=== PATIENT | female | born 1975 | race Caucasian/White ===

== ENCOUNTER 2018-09-04 17:43 | Emergency (ER) | payer MEDICAID, SELFPAY ==
[2018-09-04 18:00] VITALS: BP 99/53; PULSE 72; RESP 16; TEMP 36.5; O2SAT 98
--- NOTE | 2018-09-04 19:03 | W.ED.GENAD ---
Discharge Plan Disposition Patient Disposition: HOME Condition: Stable Discharge Details Chief Complaint: Orthopedic Clinical Impression: Strain of cervical portion of right trapezius muscle Primary Care Provider: Jose Miguel Romero ED Provider: Walter Jeong Home Meds and New Rx's Prescriptions: New cyclobenzaprine 10 mg tablet 10 mg PO TID PRN (Reason: muscle spasm) Qty: 20 RF: 0 ibuprofen [IBU] 600 mg tablet 600 mg PO QID PRN (Reason: pain) Qty: 20 RF: 0 Continue amitriptyline 10 mg Tablet 10 mg PO DAILY RF: 0 ranitidine HCl 150 mg Tablet 150 mg PO BID RF: 0 propranolol 10 mg Tablet 10 mg PO BID RF: 0 ferrous sulfate 27 mg iron Tablet 27 mg PO DAILY RF: 0 topiramate 25 mg Tablet 25 mg PO BID RF: 0 Discharge Instructions Instructions: Cervical Strain (ED), Acute Neck Pain (ED) Additional Instructions: Return immediately to the emergency department for any new or worsening symptoms otherwise please rest and minimize use of your right upper extremity for the next 3 days and then slowly advance activity as tolerated by discomfort. If not improving over the next 1-2 weeks please follow-up with your primary care provider for reassessment. Referrals: Jose Miguel Romero [Primary Care Provider] - (As needed for reassessment or if not improving over the next 1-2 weeks) Discharge Data Discharge Date/Time-TO BE ENTERED AT DEPARTURE: 09/04/18 19:18 Medical Decision Making Patient presenting to the emergency department for chief complaint of right arm pain. Patient states that she has been having mild right arm pain for the last week or so does not remember any injury or known trauma but then her pain improved over the weekend and came back severe over the last 24 hours. Patient does state that she has been taking care of her grandchild and has noticed that holding her grandchild has exacerbated the symptoms. Physical exam does show tenderness to the right cervical portion of the trapezius muscle. Physical exam is otherwise unremarkable and patient has full neuro motor and sensory function to the right upper extremity and denies any other focal motor deficits weaknesses or discomfort. Patient diagnosed with cervical strain and placed upon ibuprofen 600 mg every 6 hours and Flexeril. Patient encouraged to follow-up with primary care provider for reassessment if not improving over the next 1-2 weeks. Did discuss with patient radiological imaging but I do not feel that this needs to be performed at this time given no injury or trauma and seems to be mostly exacerbated by lifting and use of right upper extremity. After discussion of diagnosis and plan of care patient has no further needs, questions, or concerns and states clear understanding to return to the emergency department for any worsening symptoms. HPI General Mode of arrival: ambulatory. Date/Time Provider Initiated Documentation: 09/04/18 18:16. Limitations to Documentation: no limitations. Information obtained by: patient and RN notes reviewed. History of Present Illness 42 year old F presents to the emergency department with the chief complaint of Right arm pain, described as mild, with intensity rated at 4. Quality is described as aching, and is localized to the right and upper extremity. Patient distal. Patient started experiencing this day(s) (1) and it has been constant. Rest improves symptom(s), Movement worsens symptoms . Patient notes no other symptoms.. Patient did receive the following treatments prior to arrival, none Related Data Home Medications Medication Instructions Recorded Confirmed amitriptyline 10 mg PO DAILY 09/04/18 09/04/18 cyclobenzaprine 10 mg PO TID PRN #20 tab 09/04/18 ferrous sulfate 27 mg PO DAILY 09/04/18 09/04/18 ibuprofen [IBU] 600 mg PO QID PRN #20 tab 09/04/18 propranolol 10 mg PO BID 09/04/18 09/04/18 ranitidine HCl 150 mg PO BID 09/04/18 09/04/18 topiramate 25 mg PO BID 09/04/18 09/04/18 Previous Rx's Medication Instructions Recorded cyclobenzaprine 10 mg PO TID PRN #20 tab 09/04/18 ibuprofen [IBU] 600 mg PO QID PRN #20 tab 09/04/18 Allergies Allergy/AdvReac Type Severity Reaction Status Date / Time blueberry Allergy Severe needed Unverified 09/04/18 18:07 epi-pen when young dextromethorphan Allergy Severe throat Unverified 09/04/18 18:06 [From Mucinex Cough] closes guaifenesin Allergy Severe throat Unverified 09/04/18 18:06 [From Mucinex Cough] closes General Stated Complaint: Orthopedic JAYDA: 4 Review of Systems Constitutional Denies frequent falls Cardiovascular Denies chest pain, Denies syncope and Denies dyspnea Respiratory Denies cough and Denies dyspnea Musculoskeletal Reports as per HPI, Reports numbness and Reports tingling Neurologic Denies syncope, Denies frequent falls, Reports numbness and Reports tingling [facility] Social History Smoking/Tobacco Use Status: Former Tobacco Use Exam Const General: cooperative, healthy appearing and no acute distress Orientation: alert, awake and oriented x3 Resp Effort & Inspection: normal respiratory effort and able to speak in complete sentences Cardio Rate: regular rate Rhythm: regular rhythm Heart Sounds: S1 normal and S2 normal Back/Spine/Pelvis Cervical Spine: cervical ROM normal, No loss of normal cervical lordosis, cervical muscular tenderness (Right trapezius), No cervical spinal tenderness and No step off deformity Extrem General: normal to inspection, full ROM and normal capillary refill Right upper extremity: normal to inspection, full ROM, normal capillary refill, shoulder/upper arm Details: normal to inspection, axillary nerve sensory function normal and normal ROM; no tenderness and elbow/forearm Details: normal to inspection, normal ROM and distal pulses intact; no tenderness Course Vital Signs Temperature 36.5 C 09/04/18 18:00 Pulse 72 09/04/18 18:00 Respiratory Rate 16 09/04/18 18:00 Blood Pressure 99/53 L 09/04/18 18:00 Pulse Oximetry 98 09/04/18 18:00 Temperature 36.5 C 09/04/18 18:00 Temperature Source Skin 09/04/18 18:00 Pulse 72 09/04/18 18:00 Respiratory Rate 16 09/04/18 18:00 Respiratory Effort 09/04/18 18:37 Blood Pressure 99/53 L 09/04/18 18:00 Blood Pressure Position Sitting 09/04/18 18:00 Pulse Oximetry 98 09/04/18 18:00 Oxygen Delivery Method Room Air 09/04/18 18:00 Oxygen Flow Rate 0 09/04/18 18:00 Pain Level 8 09/04/18 18:00 Comment 09/04/18 18:00
--- NOTE | 2018-09-04 19:20 | ED.GENADUL_ITS ---
Discharge Plan Disposition Patient Disposition: HOME Condition: Stable Discharge Details Chief Complaint: Orthopedic Clinical Impression: Strain of cervical portion of right trapezius muscle Primary Care Provider: Jose Miguel Romero ED Provider: Walter Jeong Home Meds and New Rx's Prescriptions: New cyclobenzaprine 10 mg tablet 10 mg PO TID PRN (Reason: muscle spasm) Qty: 20 RF: 0 ibuprofen [IBU] 600 mg tablet 600 mg PO QID PRN (Reason: pain) Qty: 20 RF: 0 Continue amitriptyline 10 mg Tablet 10 mg PO DAILY RF: 0 ranitidine HCl 150 mg Tablet 150 mg PO BID RF: 0 propranolol 10 mg Tablet 10 mg PO BID RF: 0 ferrous sulfate 27 mg iron Tablet 27 mg PO DAILY RF: 0 topiramate 25 mg Tablet 25 mg PO BID RF: 0 Discharge Instructions Instructions: Cervical Strain (ED), Acute Neck Pain (ED) Additional Instructions: Return immediately to the emergency department for any new or worsening symptoms otherwise please rest and minimize use of your right upper extremity for the next 3 days and then slowly advance activity as tolerated by discomfort. If not improving over the next 1-2 weeks please follow-up with your primary care provider for reassessment. Referrals: Jose Miguel Romero [Primary Care Provider] - (As needed for reassessment or if not improving over the next 1-2 weeks) Discharge Data Discharge Date/Time-TO BE ENTERED AT DEPARTURE: 09/04/18 19:18 Medical Decision Making Patient presenting to the emergency department for chief complaint of right arm pain. Patient states that she has been having mild right arm pain for the last week or so does not remember any injury or known trauma but then her pain improved over the weekend and came back severe over the last 24 hours. Patient does state that she has been taking care of her grandchild and has noticed that holding her grandchild has exacerbated the symptoms. Physical exam does show tenderness to the right cervical portion of the trapezius muscle. Physical exam is otherwise unremarkable and patient has full neuro motor and sensory function to the right upper extremity and denies any other focal motor deficits weaknesses or discomfort. Patient diagnosed with cervical strain and placed upon ibuprofen 600 mg every 6 hours and Flexeril. Patient encouraged to follow- up with primary care provider for reassessment if not improving over the next 1- 2 weeks. Did discuss with patient radiological imaging but I do not feel that this needs to be performed at this time given no injury or trauma and seems to be mostly exacerbated by lifting and use of right upper extremity. After discussion of diagnosis and plan of care patient has no further needs, questions , or concerns and states clear understanding to return to the emergency department for any worsening symptoms. HPI General Mode of arrival: ambulatory . Date/Time Provider Initiated Documentation: 09/04/18 18:16 . Limitations to Documentation: no limitations . Information obtained by: patient and RN notes reviewed . History of Present Illness 42 year old F presents to the emergency department with the chief complaint of Right arm pain, described as mild, with intensity rated at 4. Quality is described as aching, and is localized to the right and upper extremity. Patient distal. Patient started experiencing this day(s) (1) and it has been constant. Rest improves symptom(s), Movement worsens symptoms . Patient notes no other symptoms.. Patient did receive the following treatments prior to arrival, none Related Data Home Medications Medication Instructions Recorded Confirmed amitriptyline 10 mg PO DAILY 09/04/18 09/04/18 cyclobenzaprine 10 mg PO TID PRN #20 tab 09/04/18 ferrous sulfate 27 mg PO DAILY 09/04/18 09/04/18 ibuprofen [IBU] 600 mg PO QID PRN #20 tab 09/04/18 propranolol 10 mg PO BID 09/04/18 09/04/18 ranitidine HCl 150 mg PO BID 09/04/18 09/04/18 topiramate 25 mg PO BID 09/04/18 09/04/18 Previous Rx's Medication Instructions Recorded cyclobenzaprine 10 mg PO TID PRN #20 tab 09/04/18 ibuprofen [IBU] 600 mg PO QID PRN #20 tab 09/04/18 Allergies Allergy/AdvReac Type Severity Reaction Status Date / Time blueberry Allergy Severe needed Unverified 09/04/18 18:07 epi-pen when young dextromethorphan Allergy Severe throat Unverified 09/04/18 18:06 [From Mucinex Cough] closes guaifenesin Allergy Severe throat Unverified 09/04/18 18:06 [From Mucinex Cough] closes General Stated Complaint: Orthopedic JAYDA: 4 Review of Systems Constitutional Denies frequent falls Cardiovascular Denies chest pain, Denies syncope and Denies dyspnea Respiratory Denies cough and Denies dyspnea Musculoskeletal Reports as per HPI, Reports numbness and Reports tingling Neurologic Denies syncope, Denies frequent falls, Reports numbness and Reports tingling [facility] Social History Smoking/Tobacco Use Status: Former Tobacco Use Exam Const General: cooperative, healthy appearing and no acute distress Orientation: alert, awake and oriented x3 Resp Effort & Inspection: normal respiratory effort and able to speak in complete sentences Cardio Rate: regular rate Rhythm: regular rhythm Heart Sounds: S1 normal and S2 normal Back/Spine/Pelvis Cervical Spine: cervical ROM normal, No loss of normal cervical lordosis, cervical muscular tenderness (Right trapezius), No cervical spinal tenderness and No step off deformity Extrem General: normal to inspection, full ROM and normal capillary refill Right upper extremity: normal to inspection, full ROM, normal capillary refill, shoulder/upper arm Details: normal to inspection, axillary nerve sensory function normal and normal ROM; no tenderness and elbow/forearm Details: normal to inspection, normal ROM and distal pulses intact; no tenderness Course Vital Signs Temperature 36.5 C 09/04/18 18:00 Pulse 72 09/04/18 18:00 Respiratory Rate 16 09/04/18 18:00 Blood Pressure 99/53 L 09/04/18 18:00 Pulse Oximetry 98 09/04/18 18:00 Temperature 36.5 C 09/04/18 18:00 Temperature Source Skin 09/04/18 18:00 Pulse 72 09/04/18 18:00 Respiratory Rate 16 09/04/18 18:00 Respiratory Effort 09/04/18 18:37 Blood Pressure 99/53 L 09/04/18 18:00 Blood Pressure Position Sitting 09/04/18 18:00 Pulse Oximetry 98 09/04/18 18:00 Oxygen Delivery Method Room Air 09/04/18 18:00 Oxygen Flow Rate 0 09/04/18 18:00 Pain Level 8 09/04/18 18:00 Comment 09/04/18 18:00
== END 2018-09-04 19:18 | disposition home or self-care (01) ==
PROVIDERS: Emergency Provider Nurse Practitioner Family; PCP Family Medicine
DX: S16.1XXA Strain of muscle, fascia and tendon at neck level, initial encounter (principal); X50.0XXA Overexertion from strenuous movement or load, initial encounter
CPT/HCPCS: 99283

== ENCOUNTER 2018-10-10 18:53 | Emergency (ER) | payer MEDICAID, SELFPAY ==
[2018-10-10 18:56] VITALS: BP 130/75; PULSE 86; RESP 14; TEMP 36.4; O2SAT 100
--- NOTE | 2018-10-10 19:15 | DI.RAD_ITS ---
SYMPTOMS/DIAGNOSIS: HIT WALL, LATERAL PAIN LEFT SHOULDER: No fracture or dislocation is seen. The AC joint and glenohumeral joint appear intact. There are no significant degenerative changes. IMPRESSION: Negative left shoulder.
--- NOTE | 2018-10-10 19:15 | W.ED.GENAD ---
Discharge Plan Disposition Patient Disposition: HOME Condition: Fair Discharge Details Chief Complaint: Orthopedic Clinical Impression: Adhesive capsulitis, Impingement syndrome of left shoulder, Biceps tendinitis Primary Care Provider: Jose Miguel Romero ED Provider: Rosalinda Garcia Home Meds and New Rx's Prescriptions: New ibuprofen 600 mg tablet 600 mg PO QID PRN (Reason: pain) Qty: 20 RF: 0 Continue amitriptyline 10 mg Tablet 10 mg PO DAILY RF: 0 ranitidine HCl 150 mg Tablet 150 mg PO BID RF: 0 propranolol 10 mg Tablet 10 mg PO BID RF: 0 ferrous sulfate 27 mg iron Tablet 27 mg PO DAILY RF: 0 topiramate 25 mg Tablet 50 mg PO BID RF: 0 ibuprofen [IBU] 600 mg tablet 600 mg PO QID PRN (Reason: pain) Qty: 20 RF: 0 Discharge Instructions Instructions: Adhesive Capsulitis (ED), Tendinitis (ED) Additional Instructions: Encourage hydration. Gentle range of motion as discussed, please begin the wall exercises that were given today. Please call orthopedics and physical therapy tomorrow to schedule follow-up appointments. Referral for physical therapy as attached. Please avoid any heavy overhead lifting. Tylenol and/or ibuprofen as needed for discomfort. You may try [id number] patches such as Salonpas or Lidoderm patches. If you develop any new or worsening symptoms please seek care urgently once again. Stand Alone Forms: Physical Therapy Referral Medical Decision Making Patient is a 42-year-old [id number] female presenting today with chief complaint of left shoulder pain. She reports that 6 weeks ago, after receiving a flu shot, she developed shoulder pain. States that since that time she has had diminished range of motion and discomfort, particularly with abduction of the shoulder. She denies any altered sensation aside from chronic tingling she has in bilateral hands associated with medication. Denies any injury around that time. No fevers or chills. She reports that then tonight, while caring for her granddaughter, she was running to catch the child when she struck the lateral aspect of her shoulder against a door frame. Indicates area of the deltoid, radiating from proximal to distal is area of discomfort. On exam, patient has limited range of motion with forward elevation. She has full internal and external rotation. Pain is maximal over the subacromial space. She does not have any discomfort when activating the deltoid. She is also endorsing some discomfort with palpation over the biceps tendon, no Matthias deformity noted. Positive Neer and Mccain test. 2+ distal pulses. Patient tentatively diagnosed with impingement syndrome, biceps tendinitis and adhesive capsulitis. I discussed these diagnoses with the patient. However, as the patient did have trauma today I feel that imaging is appropriate. We will give her Tylenol, ibuprofen and Lidoderm patch to help with discomfort X-ray reviewed by radiologist. No acute fracture or subluxation noted. No significant degenerative changes. Soft tissues are normal. Overall impression is no acute bony pathology Discussed these findings with the patient. I have asked that she follow-up with orthopedics in the next 2 weeks for reevaluation. Referral for physical therapy will be given. She does report that the Lidoderm patch seems to be helping greatly with her discomfort. She was given passive range of motion exercises to help regain motion. We discussed new/worsening symptoms when to seek care urgently once again. All of her questions and concerns were addressed and she is in agreement this plan. We did discuss activities that she should avoid HPI General Mode of arrival: ambulatory. Date/Time Provider Initiated Documentation: 10/10/18 18:55. Limitations to Documentation: no limitations. Information obtained by: patient and family. History of Present Illness 42 year old F presents to the emergency department with the chief complaint of left shoulder pain, described as moderate, with intensity rated at 4. Quality is described as stabbing and aching, and is localized to the left and upper extremity. Patient reports no radiation. Patient started experiencing this week(s) (6) and it has been constant. No relieving factors improve symptom(s), Movement worsens symptoms . Patient notes no other symptoms.; denies chest pain, cough, fever/chills, headaches, rash and weakness. Patient did receive the following treatments prior to arrival, none Related Data Home Medications Medication Instructions Recorded Confirmed amitriptyline 10 mg PO DAILY 09/04/18 10/10/18 ferrous sulfate 27 mg PO DAILY 09/04/18 10/10/18 ibuprofen [IBU] 600 mg PO QID PRN #20 tab 09/04/18 10/10/18 propranolol 10 mg PO BID 09/04/18 10/10/18 ranitidine HCl 150 mg PO BID 09/04/18 10/10/18 topiramate 50 mg PO BID 09/04/18 10/10/18 ibuprofen 600 mg PO QID PRN #20 tab 10/10/18 Previous Rx's Medication Instructions Recorded ibuprofen [IBU] 600 mg PO QID PRN #20 tab 09/04/18 ibuprofen 600 mg PO QID PRN #20 tab 10/10/18 Allergies Allergy/AdvReac Type Severity Reaction Status Date / Time blueberry Allergy Severe needed Unverified 10/10/18 18:59 epi-pen when young dextromethorphan Allergy Severe throat Unverified 10/10/18 18:59 [From Mucinex Cough] closes guaifenesin Allergy Severe throat Unverified 10/10/18 18:59 [From Mucinex Cough] closes General Stated Complaint: Orthopedic JAYDA: 4 Review of Systems Constitutional Reports as per HPI, Denies chills, Denies fever(s), Denies headache(s) and Denies weakness ENT Denies headache(s) Cardiovascular Reports as per HPI Respiratory Reports as per HPI and Denies cough Musculoskeletal Reports as per HPI and Reports tingling (reports she has chronic tingling in her bilateral hands, associates with medications. No change in this associated with onset of shoulder pain) Integumentary/Breasts Reports as per HPI, Denies rash and Denies wounds Neurologic Denies headache(s), Reports tingling (reports she has chronic tingling in her bilateral hands, associates with medications. No change in this associated with onset of shoulder pain) and Denies weakness PFSH Social History Smoking/Tobacco Use Status: Former Tobacco Use Exam Const General: cooperative, healthy appearing, comfortable, no acute distress, well developed and well groomed Nutritional Appearance: average body habitus and well nourished Orientation: alert and awake Chest Chest: normal inspection of the chest Resp Effort & Inspection: normal respiratory effort, able to speak in complete sentences and no respiratory distress Cardio Rate: regular rate Rhythm: regular rhythm Skin General skin exam: no rashes or lesions noted Lesions: no lesions Rashes: no rashes Trauma: no lacerations or abrasions Neuro General: alert and awake Cognition: normal cognition Speech: speech normal Gait: normal gait Motor: muscle tone normal throughout Sensory Exam: no sensory deficits noted Extrem Right upper extremity: normal to inspection Left upper extremity: normal capillary refill, no joint enlargement and shoulder/upper arm Details: tenderness Location: over the biceps tendon and over the subacromial bursa; not of the clavicle, not of the proximal humerus and not of the mid-shaft humerus; no abrasions, no lacerations, no ecchymosis, no crepitus, no foreign bodies, no deformity and no unsual warmth; abnormal to inspection, ROM limited (Full ER, IR. Lacking 30 degrees of FE), no cyanosis and no edema Psych Appearance: grossly normal and well kempt Mental Status: mental status grossly normal Speech and Movement: speech and movement normal Course Vital Signs Temperature 36.4 C L 10/10/18 18:56 Pulse 86 10/10/18 18:56 Respiratory Rate 14 10/10/18 18:56 Blood Pressure 130/75 10/10/18 18:56 Pulse Oximetry 100 10/10/18 18:56 Temperature 36.4 C L 10/10/18 18:56 Temperature Source Skin 10/10/18 18:56 Pulse 86 10/10/18 18:56 Respiratory Rate 14 10/10/18 18:56 Respiratory Effort Non-Labored 10/10/18 18:58 Blood Pressure 130/75 10/10/18 18:56 Blood Pressure Position Sitting 10/10/18 18:56 Pulse Oximetry 100 10/10/18 18:56 Oxygen Delivery Method Room Air 10/10/18 18:56 Oxygen Flow Rate 0 10/10/18 18:56 Pain Level 4 10/10/18 18:56
--- NOTE | 2018-10-10 19:19 | ED.GENADUL_ITS ---
Discharge Plan Disposition Patient Disposition: HOME Condition: Fair Discharge Details Chief Complaint: Orthopedic Clinical Impression: Adhesive capsulitis, Impingement syndrome of left shoulder, Biceps tendinitis Primary Care Provider: Jose Miguel Romero ED Provider: Rosalinda Garcia Home Meds and New Rx's Prescriptions: New ibuprofen 600 mg tablet 600 mg PO QID PRN (Reason: pain) Qty: 20 RF: 0 Continue amitriptyline 10 mg Tablet 10 mg PO DAILY RF: 0 ranitidine HCl 150 mg Tablet 150 mg PO BID RF: 0 propranolol 10 mg Tablet 10 mg PO BID RF: 0 ferrous sulfate 27 mg iron Tablet 27 mg PO DAILY RF: 0 topiramate 25 mg Tablet 50 mg PO BID RF: 0 ibuprofen [IBU] 600 mg tablet 600 mg PO QID PRN (Reason: pain) Qty: 20 RF: 0 Discharge Instructions Instructions: Adhesive Capsulitis (ED), Tendinitis (ED) Additional Instructions: Encourage hydration. Gentle range of motion as discussed, please begin the wall exercises that were given today. Please call orthopedics and physical therapy tomorrow to schedule follow-up appointments. Referral for physical therapy as attached. Please avoid any heavy overhead lifting. Tylenol and/or ibuprofen as needed for discomfort. You may try wikt-oyp-vtyigme patches such as Salonpas or Lidoderm patches. If you develop any new or worsening symptoms please seek care urgently once again. Stand Alone Forms: Physical Therapy Referral Medical Decision Making Patient is a 42-year-old [id number] female presenting today with chief complaint of left shoulder pain. She reports that 6 weeks ago, after receiving a flu shot, she developed shoulder pain. States that since that time she has had diminished range of motion and discomfort, particularly with abduction of the shoulder. She denies any altered sensation aside from chronic tingling she has in bilateral hands associated with medication. Denies any injury around that time. No fevers or chills. She reports that then tonight, while caring for her granddaughter, she was running to catch the child when she struck the lateral aspect of her shoulder against a door frame. Indicates area of the deltoid, radiating from proximal to distal is area of discomfort. On exam, patient has limited range of motion with forward elevation. She has full internal and external rotation. Pain is maximal over the subacromial space. She does not have any discomfort when activating the deltoid. She is also endorsing some discomfort with palpation over the biceps tendon, no Matthias deformity noted. Positive Neer and Mccain test. 2+ distal pulses. Patient tentatively diagnosed with impingement syndrome, biceps tendinitis and adhesive capsulitis. I discussed these diagnoses with the patient. However, as the patient did have trauma today I feel that imaging is appropriate. We will give her Tylenol, ibuprofen and Lidoderm patch to help with discomfort X-ray reviewed by radiologist. No acute fracture or subluxation noted. No significant degenerative changes. Soft tissues are normal. Overall impression is no acute bony pathology Discussed these findings with the patient. I have asked that she follow-up with orthopedics in the next 2 weeks for reevaluation. Referral for physical therapy will be given. She does report that the Lidoderm patch seems to be helping greatly with her discomfort. She was given passive range of motion exercises to help regain motion. We discussed new/worsening symptoms when to seek care urgently once again. All of her questions and concerns were addressed and she is in agreement this plan. We did discuss activities that she should avoid HPI General Mode of arrival: ambulatory . Date/Time Provider Initiated Documentation: 10/10/18 18:55 . Limitations to Documentation: no limitations . Information obtained by: patient and family . History of Present Illness 42 year old F presents to the emergency department with the chief complaint of left shoulder pain, described as moderate, with intensity rated at 4. Quality is described as stabbing and aching, and is localized to the left and upper extremity. Patient reports no radiation. Patient started experiencing this week(s) (6) and it has been constant. No relieving factors improve symptom(s), Movement worsens symptoms . Patient notes no other symptoms.; denies chest pain, cough, fever/chills, headaches, rash and weakness. Patient did receive the following treatments prior to arrival, none Related Data Home Medications Medication Instructions Recorded Confirmed amitriptyline 10 mg PO DAILY 09/04/18 10/10/18 ferrous sulfate 27 mg PO DAILY 09/04/18 10/10/18 ibuprofen [IBU] 600 mg PO QID PRN #20 tab 09/04/18 10/10/18 propranolol 10 mg PO BID 09/04/18 10/10/18 ranitidine HCl 150 mg PO BID 09/04/18 10/10/18 topiramate 50 mg PO BID 09/04/18 10/10/18 ibuprofen 600 mg PO QID PRN #20 tab 10/10/18 Previous Rx's Medication Instructions Recorded ibuprofen [IBU] 600 mg PO QID PRN #20 tab 09/04/18 ibuprofen 600 mg PO QID PRN #20 tab 10/10/18 Allergies Allergy/AdvReac Type Severity Reaction Status Date / Time blueberry Allergy Severe needed Unverified 10/10/18 18:59 epi-pen when young dextromethorphan Allergy Severe throat Unverified 10/10/18 18:59 [From Mucinex Cough] closes guaifenesin Allergy Severe throat Unverified 10/10/18 18:59 [From Mucinex Cough] closes General Stated Complaint: Orthopedic JAYDA: 4 Review of Systems Constitutional Reports as per HPI, Denies chills, Denies fever(s), Denies headache(s) and Denies weakness ENT Denies headache(s) Cardiovascular Reports as per HPI Respiratory Reports as per HPI and Denies cough Musculoskeletal Reports as per HPI and Reports tingling (reports she has chronic tingling in her bilateral hands, associates with medications. No change in this associated with onset of shoulder pain) Integumentary/Breasts Reports as per HPI, Denies rash and Denies wounds Neurologic Denies headache(s), Reports tingling (reports she has chronic tingling in her bilateral hands, associates with medications. No change in this associated with onset of shoulder pain) and Denies weakness PFSH Social History Smoking/Tobacco Use Status: Former Tobacco Use Exam Const General: cooperative, healthy appearing, comfortable, no acute distress, well developed and well groomed Nutritional Appearance: average body habitus and well nourished Orientation: alert and awake Chest Chest: normal inspection of the chest Resp Effort & Inspection: normal respiratory effort, able to speak in complete sentences and no respiratory distress Cardio Rate: regular rate Rhythm: regular rhythm Skin General skin exam: no rashes or lesions noted Lesions: no lesions Rashes: no rashes Trauma: no lacerations or abrasions Neuro General: alert and awake Cognition: normal cognition Speech: speech normal Gait: normal gait Motor: muscle tone normal throughout Sensory Exam: no sensory deficits noted Extrem Right upper extremity: normal to inspection Left upper extremity: normal capillary refill, no joint enlargement and shoulder /upper arm Details: tenderness Location: over the biceps tendon and over the subacromial bursa; not of the clavicle, not of the proximal humerus and not of the mid-shaft humerus; no abrasions, no lacerations, no ecchymosis, no crepitus , no foreign bodies, no deformity and no unsual warmth; abnormal to inspection, ROM limited (Full ER, IR. Lacking 30 degrees of FE), no cyanosis and no edema Psych Appearance: grossly normal and well kempt Mental Status: mental status grossly normal Speech and Movement: speech and movement normal Course Vital Signs Temperature 36.4 C L 10/10/18 18:56 Pulse 86 10/10/18 18:56 Respiratory Rate 14 10/10/18 18:56 Blood Pressure 130/75 10/10/18 18:56 Pulse Oximetry 100 10/10/18 18:56 Temperature 36.4 C L 10/10/18 18:56 Temperature Source Skin 10/10/18 18:56 Pulse 86 10/10/18 18:56 Respiratory Rate 14 10/10/18 18:56 Respiratory Effort Non-Labored 10/10/18 18:58 Blood Pressure 130/75 10/10/18 18:56 Blood Pressure Position Sitting 10/10/18 18:56 Pulse Oximetry 100 10/10/18 18:56 Oxygen Delivery Method Room Air 10/10/18 18:56 Oxygen Flow Rate 0 10/10/18 18:56 Pain Level 4 10/10/18 18:56
[2018-10-10] MEDS: Lidocaine 5% Patch 1 PATCH TP (19:20)
[2018-10-10] MEDS: Ibuprofen 600 MG TAB PO (19:21)
[2018-10-10] MEDS: Acetaminophen 500 MG TAB 1000 MG PO (19:21)
--- NOTE | 2018-10-10 20:03 | DI.VRAD_ITS ---
EXAM: XR Left Shoulder Complete, 2 or More Views EXAM DATE/TIME: 10/10/2018 7:16 PM CLINICAL HISTORY: 42 years old, female; Signs and symptoms; Other: Hit wall, pain lateral TECHNIQUE: XR Left shoulder complete 2 or more views. COMPARISON: No relevant prior studies available. FINDINGS: Bones/joints: No acute fracture or subluxation. No significant degenerative changes are seen. Soft tissues: Normal. IMPRESSION: No acute bony pathology. Dictated and Authenticated by: Christie Barrientos MD. Ordering:MICHAEL GARCIA MD
== END 2018-10-10 20:42 | disposition home or self-care (01) ==
LOC: ER 20:45
PROVIDERS: Emergency Provider Physician Assistant; PCP Family Medicine
DX: M75.02 Adhesive capsulitis of left shoulder (principal); M75.42 Impingement syndrome of left shoulder; M75.22 Bicipital tendinitis, left shoulder; W22.01XA Walked into wall, initial encounter
CPT/HCPCS: 99283; 73030

== ENCOUNTER 2018-10-31 15:46 | Emergency (ER) | payer MEDICAID, SELFPAY ==
[2018-10-31] VITALS (13 sets, daily range): BP systolic 89–99; BP diastolic 48–60; PULSE 68–76; RESP 12–18; TEMP 36.4; O2SAT 98–100
--- NOTE | 2018-10-31 15:57 | NUR.NOTE ---
MD Keller is at the bedside
--- NOTE | 2018-10-31 16:02 | W.ED.GENAD ---
Discharge Plan Disposition Patient Disposition: HOME Condition: Stable Discharge Details Chief Complaint: GenMedical Clinical Impression: Chest pain Primary Care Provider: Jose Miguel Romero ED Provider: Moy Keller Home Meds and New Rx's Prescriptions: No Action acetaminophen 500 mg capsule 1,000 mg PO Q6H PRNRF: 0 amitriptyline 10 mg Tablet 10 mg PO DAILY RF: 0 ranitidine HCl 150 mg Tablet 150 mg PO BID RF: 0 propranolol 10 mg Tablet 10 mg PO BID RF: 0 ferrous sulfate 27 mg iron Tablet 27 mg PO DAILY RF: 0 topiramate 25 mg Tablet 50 mg PO BID RF: 0 ibuprofen [IBU] 600 mg tablet 600 mg PO QID PRN (Reason: pain) Qty: 20 RF: 0 ibuprofen 600 mg tablet 600 mg PO QID PRN (Reason: pain) Qty: 20 RF: 0 Discharge Instructions Instructions: Chest Pain (ED) Additional Instructions: follow up with your primary care provider within a week if you have severe worsening of pain or difficulty breathing return to the emergency department Medical Decision Making 43 yo female with hx of migraines, former smoker who comes in with complaints of bilateral chest pain in the mid axillary lines over the 9-12 ribs bilaterally. She denies sob, fevers, pain with exertion, does have some increased pain with exertion. No rashes noted to suggest zoster. No evidence of dvt on exam or hypoxia so doubt PE, wells score is low, will send d dimer. Normal vascular exam and no tearing back pain so doubt dissection. Her heart score is 1 will send troponin. Will obtain xray to eval for ptx vs pna labs are unremarkable, she has no pain now. xray unremarkable. Given low heart score and well over 4 hours of symptoms do not feel additional testing indicated. Will have her f/u with pcp and return precautions given Differential Diagnosis costochondritis, pna, pe, nstemi Imaging Data Radiologic Study: Attestation: I personally reviewed and interpreted this imaging study as follows: Imaging: X-Ray Radiologist's impression: no acute findings Lab Data Lab results reviewed: Yes I reviewed the patient's lab results. ECG Data Attestation: I personally reviewed and interpreted this ECG (s) as follows: Prior ECG tracings: not available for review Interpretation: sinus rhythm, rate of 4, pr 146, qtc 415, no acue st twave ischemic findings HPI General Mode of arrival: ambulatory. Date/Time Provider Initiated Documentation: 10/31/18 15:55. Limitations to Documentation: no limitations. Information obtained by: patient. History of Present Illness 43 year old F presents to the emergency department with the chief complaint of chest pain, described as mild, with intensity rated at 3. Quality is described as aching, and is localized to the chest. Patient reports no radiation. Patient started experiencing this day(s) (2) and it has been intermittent. No relieving factors improve symptom(s), Other factors that worsen symptoms (deep breaths) . Patient notes no other symptoms.. Patient did receive the following treatments prior to arrival, none Related Data Home Medications Medication Instructions Recorded Confirmed amitriptyline 10 mg PO DAILY 09/04/18 10/31/18 ferrous sulfate 27 mg PO DAILY 09/04/18 10/31/18 ibuprofen [IBU] 600 mg PO QID PRN #20 tab 09/04/18 10/31/18 propranolol 10 mg PO BID 09/04/18 10/31/18 ranitidine HCl 150 mg PO BID 09/04/18 10/31/18 topiramate 50 mg PO BID 09/04/18 10/31/18 ibuprofen 600 mg PO QID PRN #20 tab 10/10/18 10/31/18 acetaminophen 500 mg capsule 1,000 mg PO Q6H PRN cap 10/26/18 10/31/18 Previous Rx's Medication Instructions Recorded ibuprofen [IBU] 600 mg PO QID PRN #20 tab 09/04/18 ibuprofen 600 mg PO QID PRN #20 tab 10/10/18 Allergies Allergy/AdvReac Type Severity Reaction Status Date / Time blueberry Allergy Severe needed Verified 10/26/18 09:15 epi-pen when young dextromethorphan Allergy Severe throat Verified 10/26/18 09:15 [From Mucinex Cough] closes guaifenesin Allergy Severe throat Verified 10/26/18 09:15 [From Mucinex Cough] closes woodstove AdvReac Mild cough Uncoded 10/26/18 09:15 General Stated Complaint: GenMedical JAYDA: 4 Review of Systems Review of Systems All systems reviewed & are unremarkable except as noted in HPI and below Constitutional Denies chills, Denies fever(s) and Denies weakness ENT Denies change in voice Cardiovascular Denies chest pain and Denies dyspnea Respiratory Denies dyspnea Gastrointestinal Denies abdominal pain, Denies nausea and Denies vomiting Genitourinary Denies dysuria Musculoskeletal Denies joint swelling Integumentary/Breasts Denies rash Neurologic Denies weakness Psychiatric Denies depression [facility] Social History Smoking/Tobacco Use Status: Former Tobacco Use Exam Const General: no acute distress Orientation: alert HENMT Head: normal to inspection Ears: external ears normal General nose exam: external nose normal Mouth: moist mucous membranes Eyes General: appearance normal, both eyes and all related structures Neck Neck: normal visual inspection Resp Effort & Inspection: normal respiratory effort and able to speak in complete sentences Cardio Rate: regular rate Skin General skin exam: no rashes or lesions noted Neuro General: alert and oriented x3 Extrem General: normal to inspection Psych Mental Status: mental status grossly normal Course Vital Signs Temperature 36.4 C L 10/31/18 15:54 Pulse 71 10/31/18 15:54 Respiratory Rate 18 10/31/18 15:54 Blood Pressure 99/48 L 10/31/18 15:54 Pulse Oximetry 100 10/31/18 15:54 Temperature 36.4 C L 10/31/18 15:54 Temperature Source Temporal Artery Scan 10/31/18 15:54 Pulse 71 10/31/18 15:54 Respiratory Rate 18 10/31/18 15:54 Blood Pressure 99/48 L 10/31/18 15:54 Blood Pressure Position Sitting 10/31/18 15:54 Pulse Oximetry 100 10/31/18 15:54 Oxygen Delivery Method Room Air 10/31/18 15:54 Oxygen Flow Rate 0 10/31/18 15:54 Comment 10/31/18 15:54
--- NOTE | 2018-10-31 16:03 | DI.RAD_ITS ---
SYMPTOMS/DIAGNOSIS: PLEURITIC CHEST PAIN PA AND LATERAL CHEST: The heart is normal in size. The lungs are clear. The mediastinal structures and pleura appear intact. CONCLUSION: Normal chest.
--- NOTE | 2018-10-31 16:06 | ED.GENADUL_ITS ---
Discharge Plan Disposition Patient Disposition: HOME Condition: Stable Discharge Details Chief Complaint: GenMedical Clinical Impression: Chest pain Primary Care Provider: Jose Miguel Romero ED Provider: Moy Keller Home Meds and New Rx's Prescriptions: No Action acetaminophen 500 mg capsule 1,000 mg PO Q6H PRNRF: 0 amitriptyline 10 mg Tablet 10 mg PO DAILY RF: 0 ranitidine HCl 150 mg Tablet 150 mg PO BID RF: 0 propranolol 10 mg Tablet 10 mg PO BID RF: 0 ferrous sulfate 27 mg iron Tablet 27 mg PO DAILY RF: 0 topiramate 25 mg Tablet 50 mg PO BID RF: 0 ibuprofen [IBU] 600 mg tablet 600 mg PO QID PRN (Reason: pain) Qty: 20 RF: 0 ibuprofen 600 mg tablet 600 mg PO QID PRN (Reason: pain) Qty: 20 RF: 0 Discharge Instructions Instructions: Chest Pain (ED) Additional Instructions: follow up with your primary care provider within a week if you have severe worsening of pain or difficulty breathing return to the emergency department Medical Decision Making 43 yo female with hx of migraines, former smoker who comes in with complaints of bilateral chest pain in the mid axillary lines over the 9-12 ribs bilaterally. She denies sob, fevers, pain with exertion, does have some increased pain with exertion. No rashes noted to suggest zoster. No evidence of dvt on exam or hypoxia so doubt PE, wells score is low, will send d dimer. Normal vascular exam and no tearing back pain so doubt dissection. Her heart score is 1 will send troponin. Will obtain xray to eval for ptx vs pna labs are unremarkable, she has no pain now. xray unremarkable. Given low heart score and well over 4 hours of symptoms do not feel additional testing indicat ed. Will have her f/u with pcp and return precautions given Differential Diagnosis costochondritis, pna, pe, nstemi Imaging Data Radiologic Study: Attestation: I personally reviewed and interpreted this imaging study as follows: Imaging: X-Ray Radiologist's impression: no acute findings Lab Data Lab results reviewed: Yes I reviewed the patient's lab results. ECG Data Attestation: I personally reviewed and interpreted this ECG (s) as follows: Prior ECG tracings: not available for review Interpretation: sinus rhythm, rate of 4, pr 146, qtc 415, no acue st twave ischemic findings HPI General Mode of arrival: ambulatory . Date/Time Provider Initiated Documentation: 10/31/18 15:55 . Limitations to Documentation: no limitations . Information obtained by: patient . History of Present Illness 43 year old F presents to the emergency department with the chief complaint of chest pain, described as mild, with intensity rated at 3. Quality is described as aching, and is localized to the chest. Patient reports no radiation. Patient started experiencing this day(s) (2) and it has been intermittent. No relieving factors improve symptom(s), Other factors that worsen symptoms (deep breaths) . Patient notes no other symptoms.. Patient did receive the following treatments prior to arrival, none Related Data Home Medications Medication Instructions Recorded Confirmed amitriptyline 10 mg PO DAILY 09/04/18 10/31/18 ferrous sulfate 27 mg PO DAILY 09/04/18 10/31/18 ibuprofen [IBU] 600 mg PO QID PRN #20 tab 09/04/18 10/31/18 propranolol 10 mg PO BID 09/04/18 10/31/18 ranitidine HCl 150 mg PO BID 09/04/18 10/31/18 topiramate 50 mg PO BID 09/04/18 10/31/18 ibuprofen 600 mg PO QID PRN #20 tab 10/10/18 10/31/18 acetaminophen 500 mg capsule 1,000 mg PO Q6H PRN cap 10/26/18 10/31/18 Previous Rx's Medication Instructions Recorded ibuprofen [IBU] 600 mg PO QID PRN #20 tab 09/04/18 ibuprofen 600 mg PO QID PRN #20 tab 10/10/18 Allergies Allergy/AdvReac Type Severity Reaction Status Date / Time blueberry Allergy Severe needed Verified 10/26/18 09:15 epi-pen when young dextromethorphan Allergy Severe throat Verified 10/26/18 09:15 [From Mucinex Cough] closes guaifenesin Allergy Severe throat Verified 10/26/18 09:15 [From Mucinex Cough] closes woodstove AdvReac Mild cough Uncoded 10/26/18 09:15 General Stated Complaint: GenMedical JAYDA: 4 Review of Systems Review of Systems All systems reviewed & are unremarkable except as noted in HPI and below Constitutional Denies chills, Denies fever(s) and Denies weakness ENT Denies change in voice Cardiovascular Denies chest pain and Denies dyspnea Respiratory Denies dyspnea Gastrointestinal Denies abdominal pain, Denies nausea and Denies vomiting Genitourinary Denies dysuria Musculoskeletal Denies joint swelling Integumentary/Breasts Denies rash Neurologic Denies weakness Psychiatric Denies depression [facility] Social History Smoking/Tobacco Use Status: Former Tobacco Use Exam Const General: no acute distress Orientation: alert HENMT Head: normal to inspection Ears: external ears normal General nose exam: external nose normal Mouth: moist mucous membranes Eyes General: appearance normal, both eyes and all related structures Neck Neck: normal visual inspection Resp Effort & Inspection: normal respiratory effort and able to speak in complete sentences Cardio Rate: regular rate Skin General skin exam: no rashes or lesions noted Neuro General: alert and oriented x3 Extrem General: normal to inspection Psych Mental Status: mental status grossly normal Course Vital Signs Temperature 36.4 C L 10/31/18 15:54 Pulse 71 10/31/18 15:54 Respiratory Rate 18 10/31/18 15:54 Blood Pressure 99/48 L 10/31/18 15:54 Pulse Oximetry 100 10/31/18 15:54 Temperature 36.4 C L 10/31/18 15:54 Temperature Source Temporal Artery Scan 10/31/18 15:54 Pulse 71 10/31/18 15:54 Respiratory Rate 18 10/31/18 15:54 Blood Pressure 99/48 L 10/31/18 15:54 Blood Pressure Position Sitting 10/31/18 15:54 Pulse Oximetry 100 10/31/18 15:54 Oxygen Delivery Method Room Air 10/31/18 15:54 Oxygen Flow Rate 0 10/31/18 15:54 Comment 10/31/18 15:54
[2018-10-31 16:40] LABS: Abs Immature Grans 0.01 k/cumm (0.0-0.09); Absolute Basophil Count 0.03 k/cumm (0.0-0.2); Absolute Eosinophil Count 0.13 k/cumm (0.0-0.7); Absolute Lymphocyte Count 1.86 k/cumm (1.2-3.4); Absolute Monocyte Count 0.75 k/cumm (0.11-0.7); Absolute Neutrophil Count 3.12 k/cumm (1.2-6.7); Basophils % 0.5; Eosinophils % 2.2; HCT 36.3 % (36.0-46.0); HGB 11.9 g/dL (12.0-15.5); Immature Grans % 0.2; Lymphocytes % 31.5; Mean Corp. HGB Concentration 32.8 g/dL (32.0-36.0); Mean Corpuscular Hemoglobin 27.9 pg (27.0-33.0); Mean Corpuscular Volume 85.2 fL (80-95); Mean Platelet Volume 10.4 fL (8.0-11.0); Monocytes % 12.7; Neutrophils % 52.9; Platelet Count 251 x1000/uL (130-400); RBC 4.26 m/cumm (4.00-5.20); RBC Distribution Width 13.7 % (11.7-14.6)
[2018-10-31 16:42] LABS: ALT 21 U/L (12-78); AST 10 U/L (15-37); Albumin 3.3 g/dL (3.4-5.0); Alkaline Phosphatase 79 U/L (46-116); Bilirubin, Direct 0.09 mg/dL (0.00-0.20); Bilirubin, Total 0.2 mg/dL (0.2-1.0); Lipase 151 U/L (73-393); Total Protein 6.4 g/dL (6.4-8.2)
[2018-10-31 16:44] LABS: ALT 21 U/L (12-78); AST 9 U/L (15-37); Albumin 3.3 g/dL (3.4-5.0); Alkaline Phosphatase 79 U/L (46-116); Anion Gap 5.7 mmol/L (3-11); BUN 13 mg/dL (7-18); Bilirubin, Total 0.2 mg/dL (0.2-1.0); CO2 27.3 mmol/L (21.0-32.0); CREATININE 0.87 mg/dL (0.55-1.02); Calcium 8.9 mg/dL (8.5-10.1); Chloride 108 mmol/L (98-107); Glucose 89 mg/dL (70-100); Potassium 3.5 mmol/L (3.5-5.1); Sodium 141 mmol/L (136-145); Total Protein 6.4 g/dL (6.4-8.2); Troponin I 0.02 ng/mL (0.00-0.06)
[2018-10-31 16:45] LABS: INR 1.1 (1.0-3.5); PTT Activated 24.9 sec (21.0-31.4); Prothrombin Time 10.8 sec (9.3-11.0)
[2018-10-31 16:59] LABS: D-Dimer 295 ng/mlFEU (<500)
--- NOTE | 2018-10-31 17:09 | DI.VRAD_ITS ---
EXAM: XR Chest, 2 Views EXAM DATE/TIME: 10/31/2018 4:03 PM CLINICAL HISTORY: 43 years old, female; Pain; Pleuordynia; Patient HX: Pain when breathing laying on back TECHNIQUE: XR of the chest, 2 views. COMPARISON: No relevant prior studies available. FINDINGS: Lungs: Unremarkable. No consolidation. Pleural space: Unremarkable. No pleural effusion. No pneumothorax. Heart/Mediastinum: Unremarkable. No cardiomegaly. Bones/joints: Unremarkable. IMPRESSION: No acute findings. Dictated and Authenticated by: Lj Velasco MD. Ordering:MI Winter MD
--- NOTE | 2018-10-31 17:27 | NUR.NOTE ---
MD Keller aware of blood pressure, pt. ambulated in hallway, is asymptomatic, denies any dizzy or lightheadedness.
== END 2018-10-31 17:30 | disposition home or self-care (01) ==
PROVIDERS: Emergency Provider Emergency Medicine; PCP Family Medicine
DX: R07.9 Chest pain, unspecified (principal)
CPT/HCPCS: 36415; 80053; 80076; 83690; 93005; 99284; 71046; 84484; 85025; 85379; 85610; 85730; 93010

== ENCOUNTER 2019-06-01 01:26 | Emergency (ER) | payer MEDICAID, SELFPAY ==
[2019-06-01 01:30] VITALS: BP 114/70; PULSE 90; RESP 20; TEMP 36.9; O2SAT 99
--- NOTE | 2019-06-01 01:34 | ED.GENADUL_ITS ---
Discharge Plan Disposition Patient Disposition: HOME Condition: Good Discharge Details Chief Complaint: Sorethroat Clinical Impression: Viral respiratory illness Primary Care Provider: Jose Miguel Romero ED Provider: Marshall Chan Meds and New Rx's Prescriptions: Continued acetaminophen 500 mg capsule 1,000 mg PO Q6H PRNRF: 0 amitriptyline 10 mg Tablet 10 mg PO DAILY RF: 0 ranitidine HCl 150 mg Tablet 150 mg PO BID RF: 0 propranolol 10 mg Tablet 10 mg PO BID RF: 0 ferrous sulfate 27 mg iron Tablet 27 mg PO DAILY RF: 0 topiramate 25 mg Tablet 50 mg PO BID RF: 0 ibuprofen 600 mg tablet 600 mg PO QID PRN (Reason: pain) Qty: 20 RF: 0 Discharge Instructions Instructions: Viral Syndrome (ED) Additional Instructions: Rapid strep is negative. Culture has been sent. This is likely viral. Rest and drink plenty of fluids. Use ibuprofen or acetaminophen for pain. Salt water gargles and Cepacol lozenges should help with your throat. Follow-up with primary care Tuesday if not doing better. Return to ED if difficulty breathing, inability to swallow, chest pain, mental status changes, other concerns. Stand Alone Forms: Work Release Referrals: Jose Miguel Romero [Primary Care Provider] - Medical Decision Making Patient presenting with sore throat, cough, myalgias with no associated fever. Rapid strep performed by nursing is negative. Centor score is 1. Unlikely to be strep even with family members diagnosed with strep. This is likely viral. Supportive measures only. She would like a work note which I will provide. Follow-up with primary care next week. Return to ED if shortness of breath, inability to swallow, chest pain, mental status changes, other concerns or problems. HPI General Mode of arrival: ambulatory . Date/Time Provider Initiated Documentation: 06/01/19 01:33 . Limitations to Documentation: no limitations . Information obtained by: patient and RN notes reviewed . HPI Narrative: Patient presents to ED with complaint of sore throat, cough, myalgias. Symptoms started a little over 24 hours ago. Family members have strep. She feels like she has the flu. However, she has had no fever. She has no shortness of breath or chest pain. She has no nausea/vomiting. She has muscle aches not joint aches. There is no rash. She has a little bit of a headache. She is supposed to be to work early this morning and does not think she can do it. Related Data Home Medications Medication Instructions Recorded Confirmed amitriptyline 10 mg PO DAILY 09/04/18 06/01/19 ferrous sulfate 27 mg PO DAILY 09/04/18 06/01/19 propranolol 10 mg PO BID 09/04/18 06/01/19 ranitidine HCl 150 mg PO BID 09/04/18 06/01/19 topiramate 50 mg PO BID 09/04/18 06/01/19 ibuprofen 600 mg PO QID PRN #20 tab 10/10/18 06/01/19 acetaminophen 500 mg capsule 1,000 mg PO Q6H PRN cap 10/26/18 06/01/19 Previous Rx's Medication Instructions Recorded ibuprofen 600 mg PO QID PRN #20 tab 10/10/18 Allergies Allergy/AdvReac Type Severity Reaction Status Date / Time blueberry Allergy Severe needed Verified 06/01/19 01:35 epi-pen when young dextromethorphan Allergy Severe throat Verified 06/01/19 01:35 [From Mucinex Cough] closes guaifenesin Allergy Severe throat Verified 06/01/19 01:35 [From Mucinex Cough] closes woodstove AdvReac Mild cough Uncoded 06/01/19 01:35 General Stated Complaint: Sorethroat JAYDA: 4 Review of Systems Review of Systems As documented in HPI otherwise negative as below. Const: no fever, chills, weakness Resp: + cough; no SOB, pleuritic pain CV: no CP, diaphoresis, edema, syncope GI: no abdominal pain, nausea, vomiting, diarrhea Neuro: no headache, numbness, focal weakness, confusion PFSH Medical History Migraine (Chronic) Surgical History S/P cholecystectomy (Acute) S/P tubal ligation (Acute) Social History Smoking/Tobacco Use Status: Former Tobacco Use Drug use: Never Do you feel safe in your relationship?: Yes Exam Narrative Exam Narrative: Vitals: Afebrile with normal vital signs and pulse oximetry. Const: WDWN female in NAD. HEENT: NC/AT. Normal facial exam. TMs normal bilaterally. Posterior OP erythematous but no swelling or exudate. Eyes: Normal conjunctiva and sclera. Neck: Supple. Trachea midline. Anterior adenopathy present. Lungs: Normal respiratory effort. Lungs are clear. Cor: RRR without murmur/gallop. Neuro: A+O x 3. CN grossly in tact. Good strength and no focal deficit. Ext: No C/C/E. No deformity or tenderness. Skin: Warm and dry without rash. Course Vital Signs Temperature 98.4 F 06/01/19 01:30 Pulse 90 06/01/19 01:30 Respiratory Rate 20 06/01/19 01:30 Blood Pressure 114/70 06/01/19 01:30 Pulse Oximetry 99 06/01/19 01:30 Temperature 98.4 F 06/01/19 01:30 Temperature Source Temporal Artery Scan 06/01/19 01:30 Pulse 90 06/01/19 01:30 Respiratory Rate 20 06/01/19 01:30 Respiratory Effort 06/01/19 01:30 Blood Pressure 114/70 06/01/19 01:30 Blood Pressure Position Sitting 06/01/19 01:30 Pulse Oximetry 99 06/01/19 01:30 Oxygen Delivery Method Room Air 06/01/19 01:30 Oxygen Flow Rate 0 06/01/19 01:30
== END 2019-06-01 02:00 | disposition home or self-care (01) ==
LOC: ER 01:55
PROVIDERS: Emergency Provider Emergency Medicine; PCP Family Medicine
DX: J06.9 Acute upper respiratory infection, unspecified (principal); M79.10 Myalgia, unspecified site
CPT/HCPCS: 87880; 99282; 87081